=== PATIENT | female | born 2000 | race Caucasian/White ===

== ENCOUNTER 2023-10-23 11:36 | Day surgery (SDC) | payer BC, OTHER ==
[2023-10-23] MEDS ORDERED: hydrALAZINE 20 MG/ML VIAL SLOW IVP PRN (12:10)
[2023-10-23 13:26] VITALS: BMI 24.5
[2023-10-23] MEDS ORDERED: Sterile Water 10 ML VIAL FS SCH (13:45)
[2023-10-23] MEDS ORDERED: cefTRIAXone (ROCEPHIN) 1 GM VIAL IM SCH (14:00)
[2023-10-23 14:51] LABS: HBsAg Index 0.17 S/CO (0-0.99); HIV (1/2) Antibody/Antigen Non-Reactive (NonReactive); Hep B Surf Ag - L&D Non-Reactive S/CO (NonReactive)
[2023-10-23 20:24] LABS: Hep C IgG Ab NONREACTIVE S/CO (NonReactive); Hep C Index 0.09 S/CO (0-0.79)
== END 2023-10-23 14:40 | disposition home health service (06) ==
LOC: CSHLD/OP 11:36
PROVIDERS: ATTEND Obstetrics & Gynecology
DX: O26.852 Spotting complicating pregnancy, second trimester (principal); O46.92 Antepartum hemorrhage, unspecified, second trimester; Z79.899 Other long term (current) drug therapy; Z3A.26 26 weeks gestation of pregnancy
CPT/HCPCS: 36415; 76805; 81003; 81015; 84702; 85025; 86762; 86803; 86900; 86901; 87340; 87389; 87491; 87591; 96372; 99282; J0696

== ENCOUNTER 2024-01-06 18:00 | Inpatient (IN) | payer OTHER ==
[~2024-01-06 18:00] MED LIST: Bupivacaine 0.25% HCL 30 ML VIAL ONE
[2024-01-06 19:06] VITALS: BMI 25.2
[2024-01-06] MEDS ORDERED: Acetaminophen 500 MG TAB PO PRN (19:33)
[2024-01-06] MEDS ORDERED: hydrALAZINE 20 MG/ML VIAL SLOW IVP PRN (19:33)
[2024-01-06] MEDS ORDERED: Ondansetron PF 4 MG/2 ML Vial IVP PRN (19:33)
[2024-01-06] MEDS ORDERED: Misoprostol 200 MCG TAB PR PRN (19:33)
[2024-01-06] MEDS ORDERED: Carboprost 250 MCG/ML AMP IM PRN (19:33)
[2024-01-06] MEDS ORDERED: Lidocaine 1% (PF) 30 ML VIAL SC PRN (19:33)
[2024-01-06] MEDS ORDERED: Ibuprofen 800 MG TAB PO PRN (19:33)
[2024-01-06] MEDS ORDERED: Diphenoxylate HCl/Atropine Tablet PO PRN (19:33)
[2024-01-06] MEDS ORDERED: Methylergonovine 0.2 MG/ML VIAL IM PRN (19:33)
[2024-01-06] MEDS ORDERED: Promethazine HCl 25 MG/ML VIAL IM PRN (19:33)
[2024-01-06] MEDS ORDERED: fentaNYL 50 mcg/mL 1 mL Vial SLOW IVP PRN (19:33)
[2024-01-06] MEDS ORDERED: Tranexamic Acid 1,000 MG/10 ML VIAL IVP PRN (19:33)
[2024-01-06] MEDS ORDERED: Lactated Ringer's 1,000 ML IV SCH (19:45)
[2024-01-06] MEDS ORDERED: Oxytocin 30 units/NS 500 ML 500 ML IV SCH ×2 (19:45)
[2024-01-06 19:58] LABS: Hematocrit 31.9 % (34.9-44.5); Mean Corpuscular HGB CONC 34.5 g/dL (32.0-36.0); Mean Corpuscular Hemoglobin 28.7 pg (27.0-33.0); Mean Corpuscular Volume 83.3 fL (81.6-98.3); Mean Platelet Volume 11.9 fL (7.4-10.4); Platelet Count 216 10x3/uL (150-450); RBC Distribution Width 13.2 % (11.5-14.5); Red Blood Cell (RBC) Count 3.83 10x6/uL (3.90-5.03)
[2024-01-06 20:29] LABS: Syphilis Antibody Nonreactive (Nonreactive); Syphilis Antibody Index 0.05 S/CO (<1.00 Non-Reactive)
[2024-01-06 20:30] LABS: Hep B Surf Ag - L&D Non-Reactive S/CO (NonReactive)
[2024-01-07] MEDS: Oxytocin 30 units/NS 500 ML 500 ML IV SCH (08:28)
[2024-01-07] MEDS ORDERED: Acetaminophen 325 MG TAB PO PRN (10:36)
[2024-01-07] MEDS ORDERED: Promethazine HCl 25 MG/ML VIAL IM PRN (10:36)
[2024-01-07] MEDS ORDERED: ePHEDrine Sulfate 50 MG/10 ML VIAL SLOW IVP PRN (10:36)
[2024-01-07] MEDS ORDERED: diphenhydrAMINE 50 MG/ML VIAL IVP PRN (10:36)
[2024-01-07] MEDS ORDERED: Lactated Ringer's 500 ML IV PRN (10:36)
[2024-01-07] MEDS ORDERED: Naloxone HCl 0.4 mg/ml Vial IVP PRN ×2 (10:36)
[2024-01-07] MEDS ORDERED: Moisturizing Cream (Eucerin) 113 GM JAR TOP PRN (10:36)
[2024-01-07] MEDS ORDERED: fentaNYL 2 mcg/Ropivacaine 0.2% Epidural 100 ML CADD EPIDURAL SCH (10:45)
[2024-01-07] MEDS ORDERED: Communication Order-Pharmacy FS SCH (10:45)
[2024-01-07] MEDS: fentaNYL/Ropivacaine Epidural 100 ML ONE (11:07)
[2024-01-07] MEDS: Ondansetron PF 4 MG/2 ML Vial IVP PRN (17:00)
[2024-01-07] MEDS ORDERED: hydrALAZINE 20 MG/ML VIAL SLOW IVP PRN (17:24)
[2024-01-07] MEDS ORDERED: Preparation H Ointment 28 GM TUBE PR PRN (17:24)
[2024-01-07] MEDS ORDERED: Bisacodyl 10 MG SUPP PR PRN (17:24)
[2024-01-07] MEDS ORDERED: Lanolin Ointment 7 GM TUBE TOP PRN (17:24)
[2024-01-07] MEDS ORDERED: Milk Of Magnesia 30 ML UDCUP PO PRN (17:24)
[2024-01-07] MEDS ORDERED: Docusate 100 MG CAP PO SCH (21:00)
[2024-01-07] MEDS: Misoprostol 100 MCG TAB VAG SCH (21:43)
[2024-01-07] MEDS: Docusate 100 MG CAP PO PRN (21:51)
[2024-01-07] MEDS: Ibuprofen 800 MG TAB PO SCH (21:51)
[2024-01-07] MEDS: Benzocaine-Menthol 82.5 ML CAN TOP PRN (21:52)
[2024-01-08] MEDS: Ferrous Sulfate 325 MG TAB PO SCH (07:57)
[2024-01-09] MEDS: Boostrix 0.5 ML (Tdap) VIAL (>/=7 yrs of age) IM ONE (07:13)
[2024-01-09 07:48] VITALS: BP 127/78; TEMP 98.1
== END 2024-01-09 11:10 | disposition home or self-care (01) | DRG 806 ==
LOC: CSHLD 18:20 → CSHPED 01-07 20:18
PROVIDERS: ADMIT Family Medicine; ATTEND Family Medicine
PROC: 10E0XZZ Delivery of Products of Conception, External Approach (ICD-10-PCS; principal; 2024-01-07)
PROC: 0HQ9XZZ Repair Perineum Skin, External Approach (ICD-10-PCS; 2024-01-07)
PROC: 0UQGXZZ Repair Vagina, External Approach (ICD-10-PCS; 2024-01-07)
PROC: 10907ZC Drainage of Amniotic Fluid, Therapeutic from Products of Conception, Via Natural or Artificial Opening (ICD-10-PCS; 2024-01-07)
PROC: 10H07YZ Insertion of Other Device into Products of Conception, Via Natural or Artificial Opening (ICD-10-PCS; 2024-01-07)
PROC: 3E033XZ Introduction of Vasopressor into Peripheral Vein, Percutaneous Approach (ICD-10-PCS; 2024-01-07)
DX: O70.0 First degree perineal laceration during delivery (principal); O71.4 Obstetric high vaginal laceration alone; Z37.0 Single live birth; O36.5930 Maternal care for other known or suspected poor fetal growth, third trimester, not applicable or unspecified; Z3A.37 37 weeks gestation of pregnancy
CPT/HCPCS: 51702; 85027; 86780; 86850; 86900; 86901; 87340; J0665; J2405; J2590